=== PATIENT | female | born 1995 | race Caucasian/White ===

== ENCOUNTER → 2019-03-12 14:51 | Outpatient (BNVA) | payer OTHER, SELFPAY | PROVIDERS: Visit Provider Obstetrics & Gynecology | DX: Z01.89 Encounter for other specified special examinations (principal) ==

== ENCOUNTER → 2019-03-23 08:48 | Outpatient (BNVA) | payer OTHER, SELFPAY | PROVIDERS: Referring Provider Obstetrics & Gynecology; Visit Provider Obstetrics & Gynecology | DX: R10.2 Pelvic and perineal pain (principal) | CPT/HCPCS: 76830 ==

== ENCOUNTER 2020-02-24 07:00 | Emergency (ER) | payer OTHER, SELFPAY ==
[2020-02-24 07:11] VITALS: BP 133/87; PULSE 112; RESP 18; TEMP 36.8; O2SAT 100; BMI 23.6
[2020-02-24 07:16] VITALS: BP 105/83; PULSE 85; RESP 20; O2SAT 99
--- NOTE | 2020-02-24 07:19 | ED_ITS ---
HPI - SOB/Dyspnea General: Chief Complaint: Shortness of Breath/Dyspnea Stated Complaint: SOB, COUGHING, SEVERE HEADACHE, FATIGUE Time Seen by Provider: 02/24/20 07:05 History of Present Illness: HPI Narrative: Patient is a 24-year-old female comes to the ED with upper respiratory symptoms. Patient says for about a week now she has felt fatigue. And in the past 3 days she started developing nasal and sinus congestion, headache and cough. Cough is dry nonproductive. This morning while getting ready for work she felt like she was short of breath decided to come here to the ED to get checked out. She has had contact with Covid positive patient recently. Associated symptoms: Deny abdominal pain, chest pain, fever(s), nausea, orthopnea, palpitations or vomiting Review of Systems Const: Reports: fatigue; Denies: fever(s) or chills Eyes: Denies: change in vision or eye discomfort ENMT: Reports: nasal discharge, nasal congestion and sinus pain (Maxillary s inus pain); Denies: throat pain or odynophagia Card: Denies: chest pain, palpitations, edema, swelling of feet/ankles, d yspnea on exertion or orthopnea Resp: Reports: dyspnea and non-productive cough; Denies: productive cough GI: Denies: abdominal pain, nausea, vomiting, diarrhea, constipation or hematochezia : Denies: flank pain, dysuria or hematuria Musc: Denies: neck pain, back pain or extremity swelling Skin/Breast: Denies: rash or new lesions Neuro: Reports: headache(s); Denies: numbness in extremities or weakness in extremities [facility] ED PFSH: Medical History Encounter for routine gynecological examination Patient denies medical problems Patient denies any past medical history of hypertension, diabetes, heart, lung, liver, kidney, thyroid, bleeding, clotting problems, or genital herpes. Surgical History No history of previous surgery Family History Grandfather Diabetes Maternal Heart disease Maternal Family/Other Hyperlipidemia Maternal aunt Breast cancer Paternal aunt Father Diabetes Social History Smoking and tobacco status: never smoked Alcohol intake: current Alcohol intake frequency: few times a month Additional social history: Well balanced diet Female Reproductive History: Date of last menstrual period: 02/24/20 Spontaneous abortions: No Physical Exam Const: COMMON NORMALS: no acute distress, patient oriented x3, healthy appearing and alert GENERAL APPEARANCE: cooperative and comfortable HENMT: COMMON NORMALS: normocephalic HEAD & SCALP: normocephalic MOUTH: Normal oral and palatal mucosa present THROAT: posterior oropharynx normal and uvula midline Eye: COMMON NORMALS: Equal, round and reactive pupils present PUPIL: Yes Equal, round and reactive pupils present Neck/C-Spine: COMMON NORMALS: supple GENERAL: Yes normal visual inspection Resp: COMMON NORMALS: normal respiratory effort, No retractions, No use of accessory muscles and clear to auscultation bilaterally EFFORT & INSPECTION: Yes able to speak in complete sentences, No tachypneic, No respiratory distress, No labored and Yes Actively coughing non-productive and dry AUSCULTATION: clear to auscultation bilaterally and no wheezes Cardio: COMMON NORMALS: regular rate, regular rhythm, S1 normal heart sound present, S2 normal heart sound present, No gallops present (Cardio), No clicks present (Cardio), No murmurs present (Cardio) and Peripheral pulses 2+ throughout RATE: regular rate RHYTHM: regular rhythm HEART SOUNDS: S1 normal heart sound present and S2 normal heart sound present PERIPHERAL PULSES: Peripheral pulses 2+ throughout GI: COMMON NORMALS: Normal to inspection, nondistended, normoactive bowel sounds present, Soft to palpation, non-tender and no masses PALPATION: Yes Soft to palpation : COMMON NORMALS: Yes no CVA tenderness BLADDER/KIDNEY EXAM: Yes no CVA tenderness Back/Pelvis: COMMON NORMALS: no CVA tenderness Extremity: COMMON NORMALS: normal to inspection Neuro: COMMON NORMALS: patient oriented x3 and moves all extremities SENSORIUM/ORIENTATION: Yes alert Skin: GENERAL SKIN EXAM: dry skin Course Vital Signs: Vital signs: Vital Signs Temperature 98.3 F 02/24/20 07:11 Pulse Rate 87 02/24/20 08:00 Respiratory Rate 20 H 02/24/20 08:00 Blood Pressure 105/83 02/24/20 08:00 Pulse Oximetry 97 02/24/20 08:00 MDM - SOB/Dyspnea MDM Narrative: Medical decision making narrative: Patient is a 24-year-old female comes to the ED with sinus pain/congestion, cough, headache and shortness of breath. She has been exposed to known COVID-19 positive patient. Upon exam patient appears in no acute distress and her lungs are clear to auscultation bilaterally with no signs of respiratory distress. Patient has maxillary sinus tenderness. Chest x-ray showed no acute findings. EKG showed normal sinus rhythm 75 bpm, no ST segment elevation or depression seen. Influenza was negative. COVID-19 test pending. Patient was diagnosed with sinusitis and upper respiratory infection. She was sent home with a prescription for Augmentin and Medrol Dosepak. She was given self quarantine instructions. Return to ED precautions given. Patient understood agree with plan. Lab Data: Labs: Lab Results 02/24/20 02/24/20 Range/Units 07:55 07:55 Nasal/Oral COVID-1 9 PCR Cancelled Influenza Type A A g Negative (Negative) Influenza Type B A g Negative (Negative) Imaging Data^: CXR: Attestation: I personally reviewed and interpreted this imaging study as follows: My impression: No acute findings seen. EKG Data^: EKG 1: Attestation: I personally reviewed and interpreted this EKG as follows: EKG Interpretation Date: 02/24/20 Interpretation: Sinus rhythm, 75 bpm, no ST segment elevation or depression seen. Discharge Plan Discharge Patient Disposition: Home Clinical Impression: Upper respiratory infection with cough and congestion Sinusitis Qualifiers: Sinusitis location: maxillary Chronicity: acute Recurrence: non-recurrent Qualified Code(s): J01.00 - Acute maxillary sinusitis, unspecified Condition: Stable Prescriptions: New Augmentin 500-125 mg tablet 1 tab PO BID 7 Days Qty: 14 RF: 0 Medrol (Shon) 4 mg tablets,dose pack See Rx Instructions .ROUTE .COMPLEX Qty: 21 RF: 0 No Action midodrine 2.5 mg tablet See Rx Instructions PO BID PRNRF: 0 L norgest/e.estradiol-e.estrad [Amethia] 0.15 mg-30 mcg (84)/10 mcg (7) tablets,dose pack,3 month 1 tab PO QDAY Qty: 91 RF: 4 Discharge Orders: Discharge ED (Routine); Ordered 02/24/20 Ordered By: Alen Gooden Discharge Diet: Regular Discharge Activity: Limit activity as instructed Activity Restrictions/Additional Instructions: Take meds as prescribed. Follow-up with medical provider as directed in 7-10 days. COVID testing was performed and sent to lab and results will be back in 1 to 2 days. [facility] should contact you to let you know Covid results, but you can also contact [facility] to find out results as well. Self quarantine until you get Covid results. If positive self quarantine for the next 12 days. Take ibuprofen or Tylenol for fevers. Drink plenty of fluids and stay hydrated. Symptom management with adfi-pts-gevfihz cough and nasal decongestant meds. Return to the ER or your medical provider if condition worsens. Please read and understand discharge instructions. If any questions, please ask. Coding Level of Care Code ED Medical Imaging Director for Tan Dowell Exam Comprehensive
--- NOTE | 2020-02-24 07:28 | ECG_ITS ---
[facility] Test Date: 2020-02-24 Pat Name: Falguni Reyna Department: Room: Gender: Female Biochemist: : 1995 Requested By: Alen Gooden Order Number: [id number] Kaba MD: Des Gonzales M.D. Measurements Intervals [place] Rate: 75 P: 76 WY: 129 QRS: 71 QRSD: 87 T: 67 QT: 336 QTc: 377 Interpretive Statements SINUS RHYTHM WITH SINUS ARRHYTHMIA POSSIBLE LEFT ATRIAL ENLARGEMENT [-0.1mV P WAVE IN V1/V2] No previous ECG available for comparison Electronically Signed On 02-24-2020 15:01:22 CHLORINE CELL TENDER by Des Gonzales M.D. [email or web address] [email or web address]. [facility] campusMercator [email or web address]/OM/[id number]
--- NOTE | 2020-02-24 07:28 | XR_ITS ---
WS: [id number] Exam: XR chest 1V portable [id number] Date/Time of Exam: 02/24/2020 7:35 AM Reason For Exam: cough and sob No priors. Findings: The lungs are clear and fully expanded. Costophrenic angles are sharp. No infiltrates. Bronchovascula r relief appears normal. Cardiac silhouette is unremarkable. Bony elements are intact. XR/XR chest 1V portable [id number] IMPRESSION: Unremarkable chest radiograph.
[2020-02-24 08:00] VITALS: BP 105/83; PULSE 87; RESP 20; O2SAT 97
[2020-02-24 08:28] LABS: Influenza A by IFA Negative (Negative); Influenza B by IFA Negative (Negative)
[2020-02-24 08:50] VITALS: BP 105/83; PULSE 82; RESP 20; TEMP 36.9; O2SAT 99
[2020-02-25 12:58] LABS: Quest SARS-CoV-2 RNA NOT DETECTED (NOT DETECTED)
--- NOTE | 2020-02-26 13:56 | PC.NURSE ---
Patient called and notified of COVID results at this time.
== END 2020-02-24 08:57 | disposition home or self-care (01) ==
PROVIDERS: Emergency Provider Physician Assistant
DX: J01.00 Acute maxillary sinusitis, unspecified (principal)
CPT/HCPCS: 12345; 71045; 87635; 87804; 93005; 99281; 99283

== ENCOUNTER 2022-02-27 10:38 | Outpatient (CLI) | payer OTHER, SELFPAY ==
--- NOTE | 2022-02-27 10:47 | MR_ITS ---
WS: [id number] MRI OF THE PELVIS WITHOUT AND WITH GADOLINIUM ENHANCEMENT. INDICATION: Painful periods for 6 months TECHNIQUE: Coronal T1, coronal STIR, coronal T1 post gadolinium, axial T1, axial T2, axial T1 post ga dolinium imaging. Sagittal T1 post gadolinium imaging with fat saturation technique. COMPARISON: Ultrasound March 23, 2019 FINDINGS: Anteverted uterus. Endometrial thickening measuring 8.6 mm. Cervix appears normal. Heteroge neous myometrium involving the dorsal uterine fundus. Prominent uterine vascularity. A few small area s of low signal involving the dorsal uterine fundus suspicious for focal adenomyosis versus prior C-s ection scarring. Largest area measures 9 mm. Recommend correlation with clinical history. Small amoun t of free fluid in the cul-de-sac. Peripheral enhancing multicystic RIGHT ovary with RIGHT dominant cyst measuring 3.8 x 2.5 cm. Small a mount of associated increased T1 signal likely hemorrhagic or proteinaceous debris. Normal physiologi c multifollicular LEFT ovary. . Normal bladder. Lower lumbar spine and sacrum appear normal. Normal bone marrow signal. No other susp icious findings. MR/MR pelvis wo/w con [id number] IMPRESSION: Peripherally enhancing RIGHT ovarian cyst measuring 2.4 x 3.8 cm with a small a mount of T1 hyperintense blood products or proteinaceous debris likely hemorrha gic cyst. Recommend interval follow-up with ultrasound. Normal multi-follicular LEFT ovary. Physiologic thickened endometrium measuring 8.6 mm. Susceptibly artifact in the dorsal fundus likely due to prior scar ve rsus focal adenomyosis. Recommend correlation with clinical history. Small to moderate amount of free fluid in the cul-de-sac extending about the RI GHT ovary. No other suspicious findings.spicious findings.
[2022-02-27] MEDS: gadobenate dimeglumine 20 mL vial IV (11:25)
== END 2022-02-27 10:39 | disposition home or self-care (01) ==
LOC: RAD 10:39
DX: N83.8 Other noninflammatory disorders of ovary, fallopian tube and broad ligament (principal)
CPT/HCPCS: 72197; A9577

== ENCOUNTER 2024-07-20 18:20 | Emergency (ER) | payer OTHER, SELFPAY ==
[2024-07-20 18:36] VITALS: BP 131/87; PULSE 86; RESP 17; TEMP 36.8; O2SAT 98; BMI 26.9
[2024-07-20 19:38] VITALS: BP 128/72; PULSE 88; RESP 16; O2SAT 99
--- NOTE | 2024-07-20 20:17 | ED_ITS ---
HPI - Wound/Laceration General: Chief Complaint: Wound/Laceration Stated Complaint: L thumb lac Time Seen by Provider: 07/20/24 19:53 Source: patient Mode of arrival: ambulatory Limitations: no limitations History of Present Illness: Patient is a 28-year-old female presents to ED today for evaluation of a left thumb injury/laceration that she sustained just prior to arrival after cutting it while using a knife to cut sweet potatoes. Tetanus is up-to-date. Onset (ago): hour(s) Extremity Location: Left: hand (L thumb) Place: home Patient tetanus UTD: Yes Context: accidental Associated symptoms: Reports no associated symptoms Treatments prior to arrival: bandage Related Data Home Medications ?Medication ?Instructions ?Recorded ?Confirmed midodrine 2.5 mg tablet See Rx Instructions PO BID P RN 11/29/19 11/29/19 Previous Rx's ?Medication ?Instructions ?Recorded L norgest/E estradiol-E estrad 1 tab PO QDAY #91 ea 0.15 mg-30 mcg (84)/10 mcg(7) tabs,3mos (Amethia) Allergies Allergy/AdvReac Type Severity Reaction Status Date / Time duloxetine AdvReac Mild Vomiting Verified 03/13/20 08:51 Review of Systems Musc: Reports: extremity pain (L thumb) Skin/Breast: Reports: other (laceration L thumb) Neuro: Denies: numbness in extremities or sensory changes PFSH ED PFSH: Medical History Neurocardiogenic syncope not on medications Pelvic pain Surgical History No history of previous surgery Family History Grandfather Diabetes Maternal Heart disease Maternal Family/Other Hyperlipidemia Maternal aunt Breast cancer Paternal aunt Father Diabetes Social History Smoking and tobacco/nicotine status: never used tobacco/nicotine Alcohol intake: current Alcohol intake frequency: few times a month Substance/Drug Use: never Additional social history: Well balanced diet Female Reproductive History: Spontaneous abortions: No Physical Exam Const: COMMON NORMALS: no acute distress, average body habitus, no limitations, healthy appearing, alert and well nourished Extremity: LEFT UPPER EXTREMITY: Yes hand & digits (distal tip laceration L thumb; small amount of nail plate/bed involvement ) Left hand and digits: Yes ROM (normal), Yes neurovascular exam (normal) and Yes tendon exam (normal) Neuro: COMMON NORMALS: moves all extremities, no focal motor deficits and no sensory deficits noted SENSORIUM/ORIENTATION: Yes alert Skin: TRAUMA: laceration Procedures Laceration Laceration 1: Site: hand (distal thumb) Side (If applicable): left Size (cm): 1.5 Description: flap Depth: simple, single layer Local Anesthetic: lidocaine 2% Amount of anesthesia used (mL): 2.0 Pre-repair: wound explored and irrigated extensively Skin layer closed with: nylon and vicryl Size (cm): 4-0 and 5-0 Number of sutures: 4 Technique: simple, interrupted Course Vital Signs: Vital signs: Vital Signs Temperature 98.3 F 07/20/24 18:36 Pulse Rate 88 07/20/24 19:38 Respiratory Rate 16 07/20/24 19:38 Blood Pressure 128/72 07/20/24 19:38 Pulse Oximetry 99 07/20/24 19:38 Oxygen Delivery Me thod Room Air 07/20/24 19:38 MDM - Wound/Laceration Medical Decision Making Patient here for L distal thumb laceration. This was repaired with good cosmetic outcome. XR unremarkable. Tetanus UTD. Wound care/infection precautions discussed. Differential Diagnosis Likely laceration Lab Data Radiology Impressions Finger X-Ray 07/20/24 20:28 IMPRESSION: Laceration involving the distal 1st digit. No bony abnormality. All radiology interpretation(s) finalized by discharge Discharge Plan Discharge Patient Disposition: Home Clinical Impression: Laceration of left thumb with damage to nail Qualifiers: Encounter type: initial encounter Foreign body presence: without foreign body Qualified Code(s): S61.112A - Laceration without foreign body of left thumb with damage to nail, initial encounter Condition: Stable Prescriptions: No Action midodrine 2.5 mg tablet See Rx Instructions PO BID PRN Rx Instructions: Strenght unknown PO twice a day PRN L norgest/e.estradiol-e.estrad [Amethia] 0.15 mg-30 mcg (84)/10 mcg (7) tablets,dose pack,3 month 1 tab PO QDAY Qty: 91 4RF Rx Instructions: Do not take last week of pills and start new pack immediately. Using non- cyclic Discharge Orders: Discharge ED (Routine); Ordered 07/20/24 Ordered By: Margi Miller Patient Instructions: Finger Laceration (ED) Activity Restrictions/Additional Instructions: Keep wound/laceration clean with warm soap and water twice daily. Monitor for signs of infection such as redness, swelling, increased pain, or drainage. Please seek medical re-evaluation if these occur. If you received sutures today these will need to be removed (unless you were told by the provider that they are absorbable). The provider should have discussed with you the length of time until removal-5 to 7 days. Print Language: Portuguese Coding Level of Care Code ED Oracle Pl Sql Developer for Tan Dowell
--- NOTE | 2024-07-20 20:28 | XRR_ITS ---
PROCEDURE INFORMATION: Exam: XR Left Finger(s) Exam date and time: 07/20/2024 8:31 PM Age: 28 years old Clinical indication: Injury or trauma; Other: Laceration; Finger; Left; Thumb; Additional info: Laceration; Thumb TECHNIQUE: Imaging protocol: Radiologic exam of the left fingers. Views: Minimum 2 views. COMPARISON: No relevant prior studies available. FINDINGS: Bones/joints: Soft tissue defect involves the distal palmar surface of the 1st digit. No fracture or dislocation. Soft tissues: No radiopaque foreign body. XR/XR finger LT min 2V [id number] IMPRESSION: Laceration involving the distal 1st digit. No bony abnormality.
[2024-07-20 21:48] VITALS: BP 124/72; PULSE 78; RESP 16; O2SAT 98
== END 2024-07-20 21:50 | disposition home or self-care (01) ==
PROVIDERS: Emergency Provider Physician Assistant
DX: S61.112A Laceration without foreign body of left thumb with damage to nail, initial encounter (principal); W26.0XXA Contact with knife, initial encounter
CPT/HCPCS: 12001; 73140; 99283

== ENCOUNTER 2024-07-30 18:30 | Emergency (ER) | payer OTHER, SELFPAY ==
[2024-07-30 18:31] VITALS: BP 126/84; PULSE 84; RESP 16; TEMP 36.4; O2SAT 100; BMI 26.6
[2024-07-30 20:33] VITALS: BP 123/82; PULSE 80; RESP 17; O2SAT 98
--- NOTE | 2024-07-30 20:40 | CTR_ITS ---
PROCEDURE INFORMATION: Exam: CT Abdomen And Pelvis Without Contrast Exam date and time: 07/30/2024 10:04 PM Age: 28 years old Clinical indication: Nausea and vomiting; Abdominal pain; Localized; Prior surgery; Surgery date: 6+ months; Surgery type: Laparoscopy for endometriosis; Lower abd pain with n/v TECHNIQUE: Imaging protocol: Computed tomography of the abdomen and pelvis without contrast. Radiation optimization: All CT scans at this facility use at least one of these dose optimization techniques: automated exposure control; mA and/or kV adjustment per patient size (includes targeted exams where dose is matched to clinical indication); or iterative reconstruction. COMPARISON: MR pelvis wo/w con [id number] 02/27/2022 10:56 AM RADIATION DOSE METRICS: Total DLP (mGy-cm): 665.26 FINDINGS: Liver: Unremarkable.No mass. Gallbladder and biliary ducts: Normal. No calcified stones. No ductal dilation. Pancreas: The pancreas is normal. Spleen: The spleen is normal. Adrenal glands: The adrenal glands are normal. Kidneys and ureters: There is no evidence of hydronephrosis. There is no evidence of renal calcifications. Stomach and bowel: There is no evidence of intestinal perforation or obstruction. There is no evidence of colitis/diverticulitis. Appendix: A normal appendix is identified. Intraperitoneal space: Unremarkable. No free air. No significant fluid collection. Vasculature: Unremarkable.No abdominal aortic aneurysm. Lymph nodes: Unremarkable.No enlarged lymph nodes. Urinary bladder: There is nonspecific bladder wall thickening. This may be related to incomplete distention and/or cystitis. There is some haziness of the fat adjacent to the dome of the bladder. Reproductive: There is a crenulated/partially collapsing right ovarian cyst measuring 1.4 cm with a small amount of fluid in the right adnexa and pelvis. Uterus and left ovary are unremarkable. Bones/joints: Unremarkable. No acute fracture. Soft tissues: Unremarkable. CT/CT abdomen pelvis wo con [id number] IMPRESSION: 1. There is a crenulated/partially collapsing right ovarian cyst measuring 1.4 cm with a small amount of fluid in the right adnexa and pelvis. 2. Nonspecific wall thickening of the urinary bladder with haziness to the adjacent fat may reflect lack of distension and/or cystitis.
[2024-07-30] MEDS: ondansetron 2 mg/ML SDV 2 mL 4 MG IVP (20:44)
[2024-07-30 20:45] VITALS: RESP 18; O2SAT 100
[2024-07-30] MEDS: morphine 4 mg/mL SDV 1 mL IVP ×2 (20:45→23:13)
[2024-07-30] MEDS: ketorolac 30 mg/mL INJ 10 MG IVP (20:45)
[2024-07-30] MEDS: sodium chloride 0.9% 1,000 ML 999 ML IV ×2 (20:46→23:55)
[2024-07-30 20:50] LABS: Basophils % 0.3 %; Eosinophils # 0.1 10^3/uL (0.0-0.8); Eosinophils % 0.4 %; Hematocrit 39.3 % (36-47); Lymphocytes # 0.9 10^3/uL (0.8-4.8); Lymphocytes % 7.7 %; Mean Corpuscular HGB Conc 33.3 g/dL (30-55); Mean Corpuscular Hemoglobin 30.3 pg (27-33); Mean Platelet Volume 11.5 fL (7.4-10.4); Monocytes # 0.4 10^3/uL (0.2-0.9); Neutrophils # 10.38 10^3/uL (1.8-7.7); Neutrophils % 87.9 %; Nucleated Red Blood Cells % 0 %; Platelet Count 211 10^3/cmm (157-399); Red Blood Count 4.32 10^6/uL (3.85-5.65); Red Cell Distribution Width 12.5 % (12.1-15.1); White Blood Count 11.82 10^3/uL (3.29-11.43)
[2024-07-30 21:10] LABS: Alanine Aminotransferase 8 U/L (0-33); Albumin Level 4.4 g/dL (3.5-5.2); Alkaline Phosphatase 54 U/L (35-105); Anion Gap 16.9 (5-19); Aspartate Amino Transferase 13 U/L (0-32); Blood Urea Nitrogen 8 mg/dL (6-20); Calcium 8.9 mg/dL (8.5-10.5); Carbon Dioxide 21 mmol/L (22-29); Chloride 106 mmol/L (98-107); Creatinine Clr Calc Pharmacy 182.0435; Globulin 2.7 g/dL (1.3-4.6); Glomerular Filtration Rate 144.9 mL/min (90-130); Glucose 111 mg/dL (65-115); Lactic Sepsis W/Reflex 0.9 mmol/L (0.5-2.2); Magnesium 1.9 mg/dL (1.7-2.3); Osmolality Calculated 289 mOsm/kg (285-295); Potassium 3.9 mmol/L (3.5-5.1); Sodium 140 mmol/L (136-145); Total Bilirubin 0.2 mg/dL (0.15-1.2); Total Protein 7.1 g/dL (6.6-8.7)
--- NOTE | 2024-07-30 21:13 | ED_ITS ---
HPI - Abdominal Pain 2 General: Chief Complaint: Abdominal Pain Stated Complaint: abd pain n/v passed out Time Seen by Provider: 07/30/24 20:22 History of Present Illness: 28-year-old female with endometriosis, Jesús WHITE today, presents to ED with severe left lower quadrant pain, nausea, vomiting for the pain. Patient attempted self treatments at home: Tramadol, then morphine instant relief Patient had pelvic ultrasound at [facility] earlier today Length of symptoms: Waxing and waning x 1 month. She has not required ER visit until today at which she noted severe pain, unrelenting, despite pain medication. Nausea and vomiting x 3 today. 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 She states that she is passing gas. Associated Symptoms: Reports nausea and vomiting; Denies coffee ground emesis Related Data Home Medications ?Medication ?Instructions ?Recorded ?Confirmed midodrine 2.5 mg tablet See Rx Instructions PO BID P RN 11/29/19 11/29/19 Previous Rx's ?Medication ?Instructions ?Recorded L norgest/E estradiol-E estrad 1 tab PO QDAY #91 ea 0.15 mg-30 mcg (84)/10 mcg(7) tabs,3mos (Amethia) Allergies Allergy/AdvReac Type Severity Reaction Status Date / Time No Known Allergies Allergy Verified 07/30/24 18:37 Review of Systems 2 GI: Reports: abdominal pain, nausea and vomiting; Denies: coffee ground emesis PFSH ED 2 PFSH: Medical History Neurocardiogenic syncope not on medications Pelvic pain Surgical History No history of previous surgery Family History Grandfather Diabetes Maternal Heart disease Maternal Family/Other Hyperlipidemia Maternal aunt Breast cancer Paternal aunt Father Diabetes Social History Smoking and tobacco/nicotine status: never used tobacco/nicotine Alcohol intake: current Alcohol intake frequency: few times a month Substance/Drug Use: never Additional social history: Well balanced diet Female Reproductive History: Spontaneous abortions: No Physical Exam 2 Const: COMMON NORMALS: no acute distress, average body habitus and patient oriented x3 Resp: COMMON NORMALS: normal respiratory effort and clear to auscultation bilaterally EFFORT & INSPECTION: Yes able to speak in complete sentences A USCULTATION: clear to auscultation bilaterally Cardio: COMMON NORMALS: S1 normal heart sound present and S2 normal heart sound present HEART SOUNDS: S1 normal heart sound present and S2 normal heart sound present GI: COMMON NORMALS: Soft to palpation AUSCULTATION: Yes normoactive bowel sounds PALPATION: Yes Soft to palpation, Yes Tenderness to palpation present (GI) Details: LLQ, Yes Guarding due to palpation present (GI) in the LLQ and No Rigid due to palpation : COMMON NORMALS: Yes no CVA tenderness BLADDER/KIDNEY EXAM: Yes no CVA tenderness Back/Pelvis: COMMON NORMALS: no CVA tenderness Neuro: COMMON NORMALS: patient oriented x3 Course 2 ED course: Well-appearing nontoxic 28-year-old female with longstanding history of endometriosis. She had worsening, severe pain to her left lower quadrant. CT is consistent with ovarian cyst without torsion. Symptoms from patient were complaints on the left side. I do believe this is associated with her underlying endometriosis. She was cooled off in the ED with morphine IV, antiemetic, and IV fluids were added with her mild metabolic acidosis. Patient will continue her home medications and return to ED if we can assist her further. Reevaluation(s): Reevaluation #1: Patient is doing better after second dose of morphine. Vital Signs: Vital signs: Vital Signs Temperature 97.6 F 07/30/24 18:31 Pulse Rate 75 07/30/24 23:14 Respiratory Rate 17 07/30/24 23:14 Blood Pressure 97/66 07/30/24 23:14 Pulse Oximetry 98 07/30/24 23:14 Oxygen Delivery Me thod Room Air 07/30/24 23:14 MDM - Abdominal Pain Medical Decision Making Will obtain routine labs, CT of the abdomen pelvis given her association of severe pain, and treat at this time. CT reviewed. Suspect association of endometriosis. Will give IV fluids x 1 L. No need for antibiotics at this time. Discussed with patient. Urinalysis is benign without pyuria. Patient will continue home medications and naproxen after IV fluids and be discharged home Lab Data 07/30/24 20:25 07/30/24 20:25 Labs/Radiology: Radiology Impressions Abdomen/Pelvis CT 07/30/24 20:40 IMPRESSION: 1. There is a crenulated/partially collapsing right ovarian cyst measuring 1.4 cm with a small amount of fluid in the right adnexa and pelvis. 2. Nonspecific wall thickening of the urinary bladder with haziness to the adjacent fat may reflect lack of distension and/or cystitis. Laboratory Results WBC 11.82 10^3/uL (3.29-11.43) H 07/30/24 20:25 RBC 4.32 10^6/uL (3.85-5.65) 07/30/24 20:25 Hgb 13.10 g/dL (11.27-16.99) 07/30/24 20: Hct 39.3 % (36-47) 07/30/24 20: MCV 91.0 fl (85-98) 07/30/24 20:25 MCH 30.3 pg (27-33) 07/30/24 20: MCHC 33.3 g/dL (30-55) 07/30/24 20: RDW 12.5 % (12.1-15.1) 07/30/24 20: Plt Count 211 10^3/cmm (157-399) 07/30/24 20:25 MPV 11.5 fL (7.4-10.4) H 07/30/24 20:25 Neut % (Auto) 87.9 % 07/30/24 20:25 Lymph % (Auto) 7.7 % 07/30/24 20:25 Iron % (Auto) 3.0 % 07/30/24 20: Eos % (Auto) 0.4 % 07/30/24 20:25 Baso % (Auto) 0.3 % 07/30/24 20:25 Neut # (Auto) 10.38 10^3/uL (1.8-7.7) H 07/30/24 20:25 Lymph # (Auto) 0.9 10^3/uL (0.8-4.8) 07/30/24 20:25 Iron # (Auto) 0.4 10^3/uL (0.2-0.9) 07/30/24 20:25 Eos # (Auto) 0.1 10^3/uL (0.0-0.8) 07/30/24 20:25 Baso # (Auto) 0.0 10^3/uL (0.0-0.1) 07/30/24 20:25 Nucleated RBC % (auto) 0 % 07/30/24 20:25 Nucleated RBCs # 0.0 /100WBC 07/30/24 20:25 Sodium 140 mmol/L (136-145) 07/30/24 20:25 Potassium 3.9 mmol/L (3.5-5.1) 07/30/24 20:25 Chloride 106 mmol/L (98-107) 07/30/24 20:25 Carbon Dioxide 21 mmol/L (22-29) L 07/30/24 20:25 Anion Gap 16.9 (5-19) 07/30/24 20:25 BUN 8 mg/dL (6-20) 07/30/24 20:25 Creatinine 0.5 mg/dL (0.5-0.9) 07/30/24 20:25 GFR Calculation 144.9 mL/min (90-130) H 07/30/24 20:25 Glucose 111 mg/dL (65-115) 07/30/24 20:25 Calculated Osmolality 289 mOsm/kg (285-295) 07/30/24 20:25 Lactic Acid 0.9 mmol/L (0.5-2.2) 07/30/24 20:25 Calcium 8.9 mg/dL (8.5-10.5) 07/30/24 20:25 Magnesium 1.9 mg/dL (1.7-2.3) 07/30/24 20:25 Total Bilirubin 0.2 mg/dL (0.15-1.2) 07/30/24 20:25 AST 13 U/L (0-32) 07/30/24 20:25 ALT 8 U/L (0-33) 07/30/24 20:25 Alkaline Phosphatase 54 U/L (35-105) 07/30/24 20:25 Total Protein 7.1 g/dL (6.6-8.7) 07/30/24 20:25 Albumin 4.4 g/dL (3.5-5.2) 07/30/24 20:25 Globulin 2.7 g/dL (1.3-4.6) 07/30/24 20:25 HCG, Qual Negative (Negative) 07/30/24 20:25 Urine Color Yellow (Yellow) 07/30/24 21:40 Urine Appearance Clear (CLEAR) 07/30/24 21:40 Urine pH 5.5 (5-7) 07/30/24 21:40 Ur Specific Hines 1.022 (1.005-1.030) 07/30/24 21:40 Urine Protein Negative (Negative) 07/30/24 21:40 Urine Glucose (UA) Negative (Normal) 07/30/24 21:40 Urine Ketones 1+ (Negative) H 07/30/24 21:40 Urine Blood Negative (Negative) 07/30/24 21:40 Urine Nitrate Negative (Negative) 07/30/24 21:40 Urine Bilirubin Negative (Negative) 07/30/24 21:40 Urine Urobilinogen 1.0 mg/dL (Negative) 07/30/24 21:40 Ur Leukocyte Esterase Negative (Negative) 07/30/24 21:40 Urine RBC 0-2 /hpf (0-2) 07/30/24 21:40 Urine WBC 0-5 /hpf (0-5) 07/30/24 21:40 Ur Squamous Epith Cells 0-5 /hpf (0-5) 07/30/24 21:40 Amorphous Sediment Not Reportable 07/30/24 21:40 Urine Bacteria None seen /hpf (NONE) 07/30/24 21:40 Hyaline Casts 3.30 /lpf 07/30/24 21:40 All radiology interpretation(s) finalized by discharge Discharge Plan Discharge Patient Disposition: Home Clinical Impression: Pelvic pain Ovarian cyst Qualifiers: Laterality: right Qualified Code(s): N83.201 - Unspecified ovarian cyst, right side Condition: Stable Prescriptions: No Action midodrine 2.5 mg tablet See Rx Instructions PO BID PRN Rx Instructions: Strenght unknown PO twice a day PRN L norgest/e.estradiol-e.estrad [Amethia] 0.15 mg-30 mcg (84)/10 mcg (7) tablets,dose pack,3 month 1 tab PO QDAY Qty: 91 4RF Rx Instructions: Do not take last week of pills and start new pack immediately. Using non- cyclic Discharge Orders: Discharge ED (Routine); Ordered 07/30/24 Ordered By: Caroline Wittke Discharge Diet: Full LIquid Discharge Activity: Resume usual activity Patient Instructions: Full Liquid Diet, Ovarian Cyst (ED), Opioid Safety, Pain Management Activity Restrictions/Additional Instructions: Full liquid diet as discussed. Directions have been given to follow. Continue your home meds. Take your naproxen twice daily. Return to ED if we can further assist you. Please call your doctor on Friday for a follow-up. Stand Alone Forms: Work/School Release Print Language: Malaysian Coding Level of Care Code ED Molecular Spectroscopist for Tan Dowell
[2024-07-30 21:53] LABS: Bilirubin Urine Negative (Negative); Blood Urine Negative (Negative); Glucose Urine UA Negative (Normal); Ketones Urine 1+ (Negative); Leukocyte Esterase Urine Negative (Negative); Nitrate Urine Negative (Negative); Protein Urine Negative (Negative); Specific Gravity, Urine 1.022 (1.005-1.030); Urine Appearance Clear (CLEAR); Urine Color Yellow (Yellow); pH Urine 5.5 (5-7)
[2024-07-30 21:56] LABS: HCG, Serum Qual Negative (Negative)
[2024-07-30 21:58] LABS: Add Urine Microscopic? YES; Bacteria Urine None Seen /hpf; RBC Urine 0-2 /hpf (0-2); Squamous Epithelial Cell Urine 0-5 /hpf (0-5); WBC Urine 0-5 /hpf (0-5)
[2024-07-30 23:13] VITALS: RESP 17; O2SAT 98
[2024-07-30 23:14] VITALS: BP 97/66; PULSE 75; RESP 17; O2SAT 98
[2024-07-31 00:33] VITALS: BP 106/70; PULSE 81; RESP 17; O2SAT 99
[2024-07-31 00:37] VITALS: RESP 17; O2SAT 97
[2024-07-31] MEDS: morphine 4 mg/mL SDV 1 mL IVP (00:37)
[2024-07-31 00:45] VITALS: BP 139/70; PULSE 74; RESP 17; O2SAT 98
== END 2024-07-31 00:45 | disposition home or self-care (01) ==
PROVIDERS: Emergency Provider Physician Assistant
DX: R10.2 Pelvic and perineal pain (principal); N83.201 Unspecified ovarian cyst, right side
CPT/HCPCS: 74176; 80053; 81001; 83605; 83735; 84703; 85025; 96374; 96375; 96376; 99285; J1885; J2270; J2405; J7030